=== PATIENT | female | born 1970 | race Caucasian/White ===

== ENCOUNTER → 2021-08-03 | Outpatient (CLI) | payer OTHER, BC ==
--- NOTE | 2021-08-03 08:41 | RAD ---
EXAM: ULTRASOUND ABDOMEN COMPLETE CLINICAL HISTORY: Elevated liver function tests COMPARISON: None available. TECHNIQUE: Ultrasound of the upper abdomen was performed. FINDINGS: The visualized pancreas grossly appears unremarkable. The visualized aorta, IVC within normal limits of dimension. The liver length measures 16.6 cm. Diffuse increased echogenicity identified in the fernanda er likely hepatic steatosis. There is 4.1 cm hypoechogenicity identified in the right lobe of the fernanda er. The common bile duct measures 5.7 mm in transverse dimension. The gallbladder is mildly distended . No evidence of gallstones. The right kidney measures 12.3 x 4.9 x 4.6 cm. The left kidney measures 12.1 x 3.9 x 5.9 cm. IMPRESSION: 1. 4.1 cm hypoechogenicity identified in the right lobe of the liver could be liver mass or or focal fat or lesion. Recommend MRI for further evaluation. 2. Hepatic steatosis. Electronically signed by: Sloan Murrieta MD (08/03/2021 8:38 AM) [id number]
== END ==
LOC: US 07:55
PROVIDERS: ATTEND Family Medicine
DX: K76.0 Fatty (change of) liver, not elsewhere classified (principal); R94.5 Abnormal results of liver function studies; K82.8 Other specified diseases of gallbladder
CPT/HCPCS: 76700